=== PATIENT | male | born 1985 | race Caucasian/White ===

== ENCOUNTER 2017-07-03 15:07 | Emergency (ER) | payer OTHER ==
--- NOTE | 2017-07-03 15:11 | EDPHY ---
H & P Time Seen by Provider: 07/03/17 15:10 HPI/ROS: HPI CHIEF COMPLAINT: Back pain HISTORY OF PRESENT ILLNESS: Patient is a 31-year-old male, is otherwise healthy , has remote history of a T9 compression fracture of which she had a fusion of the thoracic spine to fix this, he presents emergency room with mid thoracic back pain. Patient states last week her 1 week ago he was moving heavy objects at work in injury to his back. He now has some pain in the midthoracic region where his fusion was performed. The pain is achy does not radiate anywhere except out to the side around T8-T9 region paravertebral pain on the right. He took a leftover oxycodone which helped with this pain. He denies any focal weakness, denies numbness or tingling, denies leg weakness. Denies chest pain or shortness of breath. The pain is worse when he moves. Currently pain is 4/ 10. Denies fever. He states been going on for week he thought it would go away with time but decided come the emergency room for further evaluation. States this happened at work. Past Medical History: No significant medical history Past Surgical History: Abdominal surgery from impalement from a tree branch while skiing, colostomy, colostomy reversal, thoracic spine fracture requiring fusion Social History: Denies daily use drugs alcohol tobacco. Family History: Noncontributory ROS REVIEW OF SYSTEMS: A comprehensive 10 point review of systems is otherwise negative aside from elements mentioned in the history of present illness. Exam Constitutional appears well nontoxic no acute distress, triage nursing summary reviewed, vital signs reviewed, awake/alert. Eyes normal conjunctivae and sclera, EOMI, PERRLA. HENT normal inspection, atraumatic, moist mucus membranes, no epistaxis, neck supple/ no meningismus, no raccoon eyes. Respiratory clear to auscultation bilaterally, normal breath sounds, no respiratory distress, no wheezing. Cardiovascular rate normal, regular rhythm, no murmur, no edema, distal pulses normal. Gastrointestinal soft, non-tender, no rebound, no guarding, normal bowel sounds, no distension, no pulsatile mass. Genitourinary no CVA tenderness. Musculoskeletal back exam: There is a scar in the thoracic region midline. There is no significant tenderness on exam. There is no step-offs or crepitus. Very mild pain located paravertebral around the T8/T9 region, no skin lesions , no midline vertebral tenderness, full range of motion, no calf swelling, no tenderness of extremities, no meningismus, good pulses, neurovascularly intact. Skin pink, warm, & dry, no rash, skin atraumatic. Neurologic no focal weakness. Normal gait. Normal [employer] strength bilaterally. Normal arm strength bilaterally. awake, alert and oriented x 3, AAOx3, moves all 4 extremities equally, motor intact, sensory intact, CN II-XII intact, normal cerebellar, normal vision, normal speech. Psychiatric normal mood/affect. Heme/Lymph/Immune no lymphadenopathy. Differential Diagnosis: Includes but is not limited to in a particular order musculoskeletal strain, compression fracture, disc herniation, annular tear, spinal stenosis, cauda equina syndrome Medical Decision Making: Plan for this patient 800 mg Motrin. X-ray thoracic spine and re-evaluate. Re-evaluation: X-ray of the thoracic spine is been reviewed. There is a hardware fracture noted. 1638: I spoke with Neurosurgery Dr. Joe Vasquez with Neurosurgery we discussed this patient's case. He is neurovascularly intact. He has no focal neuro deficit. He is resting comfortably. He has no numbness or tingling. His main complaint is thoracic back pain. I went over the x-ray with the hardware fracture with him. He understands he needs to follow up with Neurosurgery. I will give him a limited supply of Manning. He is to call Dr. Vasquez for follow-up care. He is comfortable this plan. Source: Patient Constitutional: Initial Vital Signs Temperature (C) 36.9 C 07/03/17 15:17 Heart Rate 88 07/03/17 15:17 Respiratory Rate 16 07/03/17 15:17 Blood Pressure 111/75 07/03/17 15:17 O2 Sat (%) 96 07/03/17 15:17 O2 Delivery Mode Room Air Allergies/Adverse Reactions: latex Allergy (Verified 07/03/17 15:22) Home Medications: Medication Instructions Recorded Hydrocodone/APAP 5/325 [Manning 1 - 2 tab PO Q4H PRN #10 tab 07/03/17 5/325] Ibuprofen [Motrin (*)] 800 mg PO Q6-8PRN #14 tab 07/03/17 Medical Decision Making - Diagnostics Imaging Results: Imaging Impressions Thoracic Spine X-Ray 07/03/17 15:27 Impression: Both dorsal rods are fractured at the level of T9-T10. Results called to Matthew Sepulveda at 4:19 PM. - Data Points Medications Given: Discontinued Medications Ibuprofen (Motrin) 800 mg PO EDNOW ONE Stop: 07/03/17 15:28 Last Admin: 07/03/17 15:33 Dose: Not Given Departure - Departure Disposition: Home, Routine, Self-Care Clinical Impression: Back pain Qualifiers: Back pain location: thoracic back pain Chronicity: acute Back pain laterality: right Qualified Code(s): M54.6 - Pain in thoracic spine Condition: Good Instructions: Back Pain (ED) Additional Instructions: 1. Anti-inflammatory pain medicine as prescribed. 2. Take it easy no heavy lifting. 3. Follow up with her primary care doctor. 4. Return emergency room if you have severe pain questions or concerns. 5. You have a hardware fracture this needs to be followed up with Neurosurgery please call their for follow-up appointment. Referrals: NONE *PRIMARY CARE P,. [Primary Care Provider] - As per Instructions Gildardo Vasquez MD [Medical Doctor] - As per Instructions Prescriptions: Hydrocodone/APAP 5/325 [Manning 5/325] 1 - 2 tab PO Q4H PRN #10 tab PRN Reason: Pain, Moderate Ibuprofen [Motrin (*)] 800 mg PO Q6-8PRN #14 tab
[2017-07-03] MEDS ORDERED: IBUPROFEN 800 MG TAB PO ONE (15:27)
[2017-07-03 16:53] VITALS: BP 110/81
== END 2017-07-03 16:53 | disposition home or self-care (01) ==
DX: G89.18 Other acute postprocedural pain (principal); M54.6 Pain in thoracic spine; Z91.040 Latex allergy status

== ENCOUNTER → 2018-05-30 | Outpatient (CLI) | payer MEDICAID | LOC: FIMAGING 13:18 | PROVIDERS: ATTEND Internal Medicine | DX: R07.89 Other chest pain (principal); Z98.1 Arthrodesis status | CPT/HCPCS: 84481-90 ==

== ENCOUNTER 2018-06-24 03:30 | Emergency (ER) | payer MEDICAID ==
--- NOTE | 2018-06-24 03:34 | EDPHY ---
H & P Time Seen by Provider: 06/24/18 03:33 HPI/ROS: Chief Complaint: Alcohol intoxication, vomiting HPI: 32-year-old male who [place]. Patient passed out after drinking. Is unable to ambulate on their own. Patient brought in by EMS for further evaluation. No obvious signs of trauma per EMS. Patient is drinking tonight. Denies any falls. No pain. Denies injuries. ROS: 10 systems were reviewed and were negative except those elements noted in the HPI. PMH: Attention deficit hyperactivity disorder Medications: Adderall Social History: Positive for alcohol Family History: non-contributory Physical Exam: Gen: Awake, alert, slurred speech, smells of alcohol HEENT: Atraumatic Nose: no epistaxis or deformity Eyes: PERRLA, EOMI Mouth: Moist mucosa Neck: Supple, no step-offs or deformity Chest: Atraumatic, lungs clear to auscultation Heart: S1, S2 normal, no murmur Abd: Soft, non-tender, no guarding Back: Atraumatic Ext: no edema, atraumatic Skin: no rash Neuro: Sensation grossly intact, Strength 5/5 in bilateral upper and lower extremities - Medical/Surgical History Hx Asthma: No Hx Chronic Respiratory Disease: No Hx Diabetes: No Hx Cardiac Disease: No Hx Renal Disease: No Hx Cirrhosis: No Hx Alcoholism: No Hx HIV/AIDS: No Hx Splenectomy or Spleen Trauma: No Other PMH: Orthopedic injuries. Spinal fusion. Colon surgery - Social History Smoking Status: Never smoked Constitutional: Initial Vital Signs Temperature (C) 36.5 C 06/24/18 03:33 Heart Rate 87 06/24/18 03:33 Respiratory Rate 20 06/24/18 03:33 Blood Pressure 125/80 H 06/24/18 03:33 O2 Sat (%) 90 L 06/24/18 03:33 O2 Delivery Mode Room Air Allergies/Adverse Reactions: latex Allergy (Verified 06/24/18 03:32) Home Medications: Medication Instructions Recorded Amphet Asp and D/Amphet [Adderall 06/24/18 10 MG (*)] Medical Decision Making ED Course/Re-evaluation: Patient is now awake and appropriate. Ambulating unassisted to the bathroom. No current complaints. Patient is tolerating oral fluids. Patient is ready for discharge with sober ride. Departure - Departure Disposition: Home, Routine, Self-Care Clinical Impression: Alcohol dependence Condition: Good Instructions: Alcohol Intoxication (ED) Referrals: Patient,NotPresent [Primary Care Provider] - As per Instructions
[2018-06-24 03:35] VITALS: BP 125/80
== END 2018-06-24 03:57 | disposition home or self-care (01) ==
LOC: EDUNIT#
DX: F10.220 Alcohol dependence with intoxication, uncomplicated (principal)